=== PATIENT | male | born 1960 | race Caucasian/White ===

== ENCOUNTER 2020-02-22 15:40 | Emergency (ER) | payer OTHER ==
[~2020-02-22 15:40] MED LIST: ACETAMINOPHEN325 MG PO; ALL DAY ALLERGY10 M2 PO; AMLODIPINE BESY10 MG PO; AZITHROMYCIN250 MG PO; BASAGLAR K100 UNIT/1 IM; BREO ELLIPTA 200-25 INH; CERTAGEN1 EACH PO; COZAAR50 MG PO; CYMBALTA 30MG C30 MG PO; DAILY VITE WIT1 EACH PO; DICLOFENAC 1% GEL TOP; ELAVIL50 MG PO; FLOMAX0.4 MG PO; GABAPENTIN800 MG PO; HCTZ25 MG PO; IMITREX50 M1 PO; INCRUSE ELLI62.5 MCG INH; LANTUS **100 UNITS/ SC; LASIX20 MG PO; LEVAQUIN500 MG PO; LEVAQUIN750 MG PO; LOSARTAN-HCTZ1 EAC2 PO; METFORMIN HCL500 M3 PO; METFORMIN HCL500 MG PO; METRONIDAZOLE500 MG PO; MUCINEX 600MG600 MG PO; MUCUS RELIEF400 MG PO; NEURONTIN400 MG PO; NORCO 5-325 TA1 EACH PO; NORVASC5 MG PO; ONDANSETRON ODT4 MG PO; PEPCID AC20 MG PO; PERCOCET 5-3251 EACH PO; POTASSIUM CHLO10 MEQ PO; PRAVACHOL20 MG PO; PREDNISONE 10MG10 MG PO; PREDNISONE5 MG PO; PRILOSEC20 MG PO; ROBITUSSIN DM10 ML PO; SINGULAIR10 MG PO; SPIRIVA 18MCG18 MCG INH; SYMBICORT 1601 PUFFS INH; THEOPHYLLINE400 MG PO; TRAMADOL HCL50 MG PO; TRELEGY ELLIPT1 EACH INH; VENTOLIN (2.5 MG/3 M INH; VENTOLIN (2.5 MG/3 M NEB; VIBRAMYCIN100 MG PO; WELLBUTRIN SR150 MG PO; ZANAFLEX4 M1 PO; ZANTAC150 MG PO; ZYRTEC10 M3 PO; [UNRECOGNIZED DRUG - OTHER] PO; [UNRECOGNIZED DRUG - REMARK]
[2020-02-22 17:34] LABS: BASOPHIL 0.4 % (0-2); HCT 40.7 % (42.0-52.0); HGB 12.4 g/dl (13.2-18.0); MCH 26.9 pg (25.0-31.0); MCHC 30.5 g/dL (32.0-36.0); MCV 88.3 fL (78.0-100.0); MONOCYTE 9.6 % (0-12); MPV 9.9 fL (6.0-9.5); NEUTROPHIL 66.6 % (41-80); NRBC 0; PLT 344 K/uL (150-400); RBC 4.61 M/uL (4.70-6.00); RDW 14.3 % (11.5-14.0); WBC 11.8 K/uL (4.0-10.5)
[2020-02-22 17:44] LABS: ALBUMIN 3.3 g/dL (3.4-5.0); BILIRUBIN - TOTAL 0.2 mg/dL (0.2-1.0); BUN/CREAT RATIO (CALC) 10.8 RATIO; CREATININE 0.74 mg/dL (0.67-1.17); POTASSIUM 3.9 mmol/L (3.5-5.1); TOTAL PROTEIN 7.3 g/dL (6.4-8.2)
[2020-02-22 18:21] LABS: BILIRUBIN NEGATIVE (NEGATIVE); BLOOD NEGATIVE Ery/uL (NEGATIVE); CLARITY CLEAR (CLEAR); COLOR YELLOW (YELLOW); GLUCOSE (U) NORMAL (NORMAL); LEUKOCYTES NEGATIVE Leu/uL (NEGATIVE); NITRITE NEGATIVE (NEGATIVE); PROTEIN NEGATIVE (NEGATIVE); UROBILINOGEN 0.2 mg/dL (0.2-1.0); pH 6.5 (5.0-9.0)
[2020-02-22] MEDS ORDERED: METRONIDAZOLE500 MG PO (19:37)
[2020-02-22] MEDS ORDERED: NORCO 5-325 TA1 EACH PO (19:37)
[2020-02-22] MEDS ORDERED: AUGMENTIN 875-1 EACH PO (19:37)
== END 2020-02-22 20:40 | disposition home or self-care (01) ==
LOC: FER 15:40
PROVIDERS: Emergency Medicine
DX: K57.32 Diverticulitis of large intestine without perforation or abscess without bleeding (principal); I10 Essential (primary) hypertension; J44.9 Chronic obstructive pulmonary disease, unspecified; F17.210 Nicotine dependence, cigarettes, uncomplicated; Z90.49 Acquired absence of other specified parts of digestive tract; Z20.822 Contact with and (suspected) exposure to COVID-19
CPT/HCPCS: 36415; 80053; 81003; 83690; 85025; J1170; J2405; J2543; J7030; Q9967; U0002

== ENCOUNTER 2020-08-20 23:06 | Emergency (ER) | payer OTHER ==
[~2020-08-20 23:06] MED LIST changes: +AUGMENTIN 875-1 EACH PO
[2020-08-21 00:03] LABS: BASOPHIL 0.4 % (0-2); EOSINOPHIL 2.7 % (0-5); HCT 41.9 % (42.0-52.0); HGB 13.6 g/dl (13.2-18.0); LYMPHOCYTE 20.9 % (15-48); MCH 27.5 pg (25.0-31.0); MCHC 32.5 g/dL (32.0-36.0); MCV 84.6 fL (78.0-100.0); MPV 9.2 fL (6.0-9.5); NEUTROPHIL 65.5 % (41-80); NRBC 0; PLT 381 K/uL (150-400); RBC 4.95 M/uL (4.70-6.00); RDW 14.6 % (11.5-14.0); WBC 13.4 K/uL (4.0-10.5)
[2020-08-21 00:14] LABS: ALBUMIN 3.5 g/dL (3.4-5.0); BILIRUBIN - TOTAL 0.2 mg/dL (0.2-1.0); BUN/CREAT RATIO (CALC) 16.4 RATIO; CREATININE 1.16 mg/dL (0.67-1.17); GLOBULIN (CALCULATION) 3.9 g/dL; POTASSIUM 3.9 mmol/L (3.5-5.1); TOTAL PROTEIN 7.4 g/dL (6.4-8.2)
[2020-08-21 00:18] LABS: LACTIC ACID 1.4 mmol/L (0.4-1.9)
[2020-08-21 01:30] LABS: PRO-BNP 104 pg/mL (<125)
[2020-08-21 02:29] LABS: CORONAVIRUS 2019 SARS-COV-2 NEGATIVE (NEGATIVE); INFLUENZA A NAA NEGATIVE (NEGATIVE)
[2020-08-21 02:53] LABS: BILIRUBIN NEGATIVE (NEGATIVE); BLOOD NEGATIVE Ery/uL (NEGATIVE); CLARITY CLEAR (CLEAR); COLOR YELLOW (YELLOW); GLUCOSE (U) NORMAL (NORMAL); LEUKOCYTES NEGATIVE Leu/uL (NEGATIVE); NITRITE NEGATIVE (NEGATIVE); PROTEIN NEGATIVE (NEGATIVE); SPECIFIC GRAVITY 1.025 (1.001-1.030); UROBILINOGEN 0.2 mg/dL (0.2-1.0); pH 5.5 (5.0-9.0)
[2020-08-21] MEDS ORDERED: MEDROL 4MG DOSEP4 MG PO (04:15)
[2020-08-21] MEDS ORDERED: LEVAQUIN750 MG PO (04:15)
== END 2020-08-21 04:50 | disposition home or self-care (01) ==
LOC: FER 23:06
PROVIDERS: Emergency Medicine Emergency Medical Services
DX: J44.1 Chronic obstructive pulmonary disease with (acute) exacerbation (principal); D73.89 Other diseases of spleen; E11.9 Type 2 diabetes mellitus without complications; F17.200 Nicotine dependence, unspecified, uncomplicated; Z99.81 Dependence on supplemental oxygen; Z20.822 Contact with and (suspected) exposure to COVID-19
CPT/HCPCS: 36415; 71046; 71260; 80053; 81003; 83605; 83880; 84145; 84484; 85025; 85379; 87040; 93005; J1170; J1885; J2405; J2543; J2930; J7030; Q9967; U0002

== ENCOUNTER 2021-04-13 23:15 | Inpatient (IN) | payer OTHER ==
[~2021-04-13] VITALS: Ht 175.3 cm; Wt 114.8 kg
[~2021-04-13 23:15] MED LIST changes: +MEDROL 4MG DOSEP4 MG PO
[2021-04-13 23:49] LABS: BASOPHIL 0.5 % (0-2); EOSINOPHIL 2.2 % (0-5); HGB 13.5 g/dl (13.2-18.0); LYMPHOCYTE 15.1 % (15-48); MCH 25.6 pg (25.0-31.0); MCHC 30.7 g/dL (32.0-36.0); MCV 83.5 fL (78.0-100.0); MONOCYTE 11.8 % (0-12); MPV 9.3 fL (6.0-9.5); NEUTROPHIL 69.7 % (41-80); NRBC 0; PLT 315 K/uL (150-400); RBC 5.27 M/uL (4.70-6.00); RDW 15.2 % (11.5-14.0); WBC 8.7 K/uL (4.0-10.5)
[2021-04-14 00:18] LABS: ALBUMIN 3.8 g/dL (3.4-5.0); BILIRUBIN - TOTAL 0.4 mg/dL (0.2-1.0); CREATININE 0.88 mg/dL (0.67-1.17); GLOBULIN (CALCULATION) 4.2 g/dL; POTASSIUM 2.8 mmol/L (3.5-5.1)
[2021-04-14 01:08] LABS: BILIRUBIN NEGATIVE (NEGATIVE); BLOOD NEGATIVE Ery/uL (NEGATIVE); CLARITY CLEAR (CLEAR); COLOR YELLOW (YELLOW); GLUCOSE (U) NORMAL (NORMAL); LEUKOCYTES NEGATIVE Leu/uL (NEGATIVE); NITRITE NEGATIVE (NEGATIVE); PROTEIN NEGATIVE (NEGATIVE); SPECIFIC GRAVITY 1.025 (1.001-1.030); UROBILINOGEN 0.2 mg/dL (0.2-1.0); pH 5.5 (5.0-9.0)
[2021-04-14 06:14] LABS: HCT 38.9 % (42.0-52.0); HGB 11.8 g/dl (13.2-18.0); MCH 25.7 pg (25.0-31.0); MCHC 30.3 g/dL (32.0-36.0); MCV 84.6 fL (78.0-100.0); MPV 9.6 fL (6.0-9.5); RBC 4.6 M/uL (4.70-6.00); RDW 15.3 % (11.5-14.0); WBC 6.5 K/uL (4.0-10.5)
[2021-04-14 06:45] LABS: ALBUMIN 3.2 g/dL (3.4-5.0); BILIRUBIN - TOTAL 0.2 mg/dL (0.2-1.0); BUN/CREAT RATIO (CALC) 9.6 RATIO; C-REACTIVE PROTEIN 5.4 mg/dL (<=0.90); CREATININE 1.36 mg/dL (0.67-1.17); PHOSPHORUS 4.3 mg/dL (2.6-4.7); POTASSIUM 3.6 mmol/L (3.5-5.1); TOTAL PROTEIN 7.2 g/dL (6.4-8.2)
[2021-04-14 06:46] LABS: MAGNESIUM 2.9 mg/dL (1.8-2.4)
[2021-04-14] MEDS ORDERED: THEOPHYLLINE400 MG PO (10:47)
[2021-04-14] MEDS ORDERED: AZITHROMYCIN250 MG PO (10:49)
[2021-04-14] MEDS ORDERED: BACITRACIN15 GM TOP (10:50)
[2021-04-14] MEDS ORDERED: FLONASE ALLER15.8 ML (10:51)
[2021-04-14] MEDS ORDERED: HCTZ12.5 MG PO (10:52)
[2021-04-14] MEDS ORDERED: LANTUS **100 UNITS/ SC (10:53)
[2021-04-14] MEDS ORDERED: COZAAR50 MG PO (10:53)
[2021-04-14] MEDS ORDERED: NURTEC ODT75 MG PO (10:54)
[2021-04-14] MEDS ORDERED: PROTONIX 40MG T40 MG PO (10:54)
[2021-04-14] MEDS ORDERED: MIRAPEX0.25 MG PO (10:55)
[2021-04-14] MEDS ORDERED: PROAIR HFA8.5 GM INH (10:58)
[2021-04-14] MEDS ORDERED: IMITREX50 MG PO (10:58)
[2021-04-14] MEDS ORDERED: TOPIRAMATE25 MG PO (11:00)
[2021-04-14] MEDS ORDERED: TRIAMCINOLONE454 GM TOP (11:01)
--- NOTE | 2021-04-14 14:59 | NUR ---
04/14/21 Mr. Danielson shares a home with his son. He has home 02 at [address] and a cane. - Mr. Danielson is supported by [facility]. He reports not to have worked enough quarters to qualify for SS at age 62. - Will monitor for discharge planning needs.
[2021-04-16 05:58] LABS: BASOPHIL 0.1 % (0-2); EOSINOPHIL 0 % (0-5); HCT 37.6 % (42.0-52.0); HGB 11.8 g/dl (13.2-18.0); LYMPHOCYTE 6.2 % (15-48); MCH 26.1 pg (25.0-31.0); MCHC 31.4 g/dL (32.0-36.0); MCV 83.2 fL (78.0-100.0); MONOCYTE 6.3 % (0-12); MPV 9.7 fL (6.0-9.5); NEUTROPHIL 86.5 % (41-80); NRBC 0; PLT 279 K/uL (150-400); RBC 4.52 M/uL (4.70-6.00); RDW 15.4 % (11.5-14.0)
[2021-04-16 06:00] LABS: WBC 13.8 K/uL (4.0-10.5)
[2021-04-16 06:44] LABS: BUN/CREAT RATIO (CALC) 24.4 RATIO; CREATININE 0.86 mg/dL (0.67-1.17); POTASSIUM 4.3 mmol/L (3.5-5.1)
--- NOTE | 2021-04-17 12:45 | NUR ---
3/4 No discharge planning needs are anticipated
[2021-04-18 03:47] LABS: HCT 40.7 % (42.0-52.0); HGB 12.4 g/dl (13.2-18.0); MCH 25.5 pg (25.0-31.0); MCHC 30.5 g/dL (32.0-36.0); MCV 83.7 fL (78.0-100.0); MPV 9.4 fL (6.0-9.5); RBC 4.86 M/uL (4.70-6.00); RDW 15.4 % (11.5-14.0); WBC 14.1 K/uL (4.0-10.5)
[2021-04-18 04:07] LABS: BUN/CREAT RATIO (CALC) 21.3 RATIO; CREATININE 0.94 mg/dL (0.67-1.17); POTASSIUM 4.8 mmol/L (3.5-5.1)
--- NOTE | 2021-04-20 15:44 | NUR ---
04/20/21 Dr. Mata is anticipating the need for IV antibiotic Meropenem 3 times per day following discharge from HH or SNF. Mr. Danielson is not interested in SNF placement. The local straw hat brim raiser operator nor [facility] will accept patient's insurance. [facility] can arrange the IV antibiotic without services and will accept [employer]. Mr. Danielson reports that his daughter can administer the medications.
[2021-04-21 05:45] LABS: BASOPHIL 0.4 % (0-2); EOSINOPHIL 0.2 % (0-5); HCT 39.4 % (42.0-52.0); LYMPHOCYTE 8.6 % (15-48); MCH 25.5 pg (25.0-31.0); MCHC 30.5 g/dL (32.0-36.0); MCV 83.7 fL (78.0-100.0); MONOCYTE 5.3 % (0-12); MPV 9.3 fL (6.0-9.5); NEUTROPHIL 79.9 % (41-80); NRBC 0; PLT 315 K/uL (150-400); RBC 4.71 M/uL (4.70-6.00); RDW 15.3 % (11.5-14.0)
[2021-04-21 05:48] LABS: WBC 17.1 K/uL (4.0-10.5)
[2021-04-21 06:09] LABS: ALBUMIN 2.7 g/dL (3.4-5.0); BILIRUBIN - TOTAL 0.2 mg/dL (0.2-1.0); BUN/CREAT RATIO (CALC) 18.2 RATIO; CREATININE 0.77 mg/dL (0.67-1.17); GLOBULIN (CALCULATION) 3.2 g/dL; POTASSIUM 4.5 mmol/L (3.5-5.1); TOTAL PROTEIN 5.9 g/dL (6.4-8.2)
[2021-04-22 05:35] LABS: BASOPHIL 0.4 % (0-2); EOSINOPHIL 0.2 % (0-5); HGB 12.1 g/dl (13.2-18.0); LYMPHOCYTE 9.2 % (15-48); MCH 25.2 pg (25.0-31.0); MCHC 30.3 g/dL (32.0-36.0); MCV 83.2 fL (78.0-100.0); MONOCYTE 5.6 % (0-12); MPV 8.9 fL (6.0-9.5); NEUTROPHIL 80.2 % (41-80); NRBC 0; PLT 266 K/uL (150-400); RBC 4.81 M/uL (4.70-6.00); RDW 15.4 % (11.5-14.0)
[2021-04-22 05:37] LABS: WBC 14.4 K/uL (4.0-10.5)
[2021-04-22 06:03] LABS: BUN 17 mg/dL (7-18); CHLORIDE 100 mmol/L (98-107); CO2 (BICARBONATE) 33 mmol/L (21-32); CREATININE 0.74 mg/dL (0.67-1.17); GLUCOSE 183 mg/dL (74-106); MAGNESIUM 2.1 mg/dL (1.8-2.4); POTASSIUM 4.4 mmol/L (3.5-5.1)
[2021-04-22 06:04] LABS: C-REACTIVE PROTEIN < 0.20 mg/dL (<=0.90)
--- NOTE | 2021-04-23 13:41 | NUR ---
04/23/21 Mr. Danielson reports to have received notification from [employer] asking when they could bulk picker the 02 because his insurance is not active. - Our Admitting Department verified that [employer] is active. - [employer]'s Billing Department was contacted at . They agreed to again verify insurance. They were also given the name and telephone # to patient's Passport case operator, Marina, . - This information was provided to Mr. Danielson
[2021-04-25] MEDS ORDERED: DUONEB 2.5-0.5M1 AMP INH (13:23)
[2021-04-25] MEDS ORDERED: MEDROL 4MG DOSEP4 MG PO (13:23)
== END 2021-04-25 15:45 | disposition home or self-care (01) | DRG 189 ==
LOC: FER 23:15 → FTCU 04-14 02:46
PROVIDERS: Emergency Medicine Emergency Medical Services; Internal Medicine; Nurse Practitioner; ADMIT Internal Medicine
DX: J96.21 Acute and chronic respiratory failure with hypoxia (principal); J18.9 Pneumonia, unspecified organism; J47.0 Bronchiectasis with acute lower respiratory infection; J47.1 Bronchiectasis with (acute) exacerbation; J96.22 Acute and chronic respiratory failure with hypercapnia; Z20.822 Contact with and (suspected) exposure to COVID-19; J43.2 Centrilobular emphysema; I10 Essential (primary) hypertension; E11.9 Type 2 diabetes mellitus without complications; G43.909 Migraine, unspecified, not intractable, without status migrainosus; M54.9 Dorsalgia, unspecified; G89.29 Other chronic pain; E87.6 Hypokalemia; F17.210 Nicotine dependence, cigarettes, uncomplicated; E78.5 Hyperlipidemia, unspecified; I25.2 Old myocardial infarction; Z98.890 Other specified postprocedural states; Z90.49 Acquired absence of other specified parts of digestive tract
CPT/HCPCS: 36415; 36600; 71045; 71250; 71275; 80048; 80053; 80198; 80202; 81003; 82803; 82962; 83036; 83605; 83615; 83735; 83880; 84100; 84145; 84484; 85025; 85379; 86140; 87040; 87070; 87088; 87205; 87449; 93005; 94010; 94640; 94664; 94667; 94668; 94760; J0456; J0692; J0696; J1170; J1650; J2185; J2405; J2920; J2930; J3105; J3475; J7050; Q9967; U0002